=== PATIENT | female | born 1990 | race Caucasian/White ===

== ENCOUNTER 2017-05-21 09:42 | Emergency (ER) | payer OTHER ==
[~2017-05-21] VITALS: Ht 154.9 cm; Wt 91.0 kg
[~2017-05-21 09:42] MED LIST: ALBU8I INH; DICL75 PO; PERC5TAB12 PO
[2017-05-21 09:49] VITALS: BP 140/98; PULSE 144; RESP 22; O2SAT 99
[2017-05-21 09:50] VITALS: BP 135/100; PULSE 126; RESP 21
[2017-05-21] MEDS ORDERED: LORazepam 2 MG/ML VIAL ONE (09:54)
[2017-05-21] MEDS ORDERED: LORazepam 2 MG/ML VIAL IV PUSH ONE ×2 (10:00→10:15)
[2017-05-21] MEDS ORDERED: SODIUM CHLOR 0.9% 1000 ML INJ 1,000 ML IV ONE (10:00)
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
[2017-05-21 11:02] LABS: AUTOMATED NEUTROPHIL # 7.2 TH/MM3 (1.8-7.7); BASOPHIL # 0.1 TH/MM3 (0-0.2); BASOPHIL % 0.5 % (0.0-2.0); EOSINOPHIL # 0.1 TH/MM3 (0-0.4); EOSINOPHIL % 0.5 % (0.0-4.0); HEMATOCRIT 42.2 % (35.0-46.0); HEMO FLAGS DIFF FINAL; LYMPH % 25.8 % (9.0-44.0); LYMPHOCYTE # 2.9 TH/MM3 (1.0-4.8); MEAN CELL VOLUME 80.5 FL (80.0-100.0); MEAN CORPUSCULAR HGB CONC 34.8 % (32.0-36.0); MONO % 10.3 % (0.0-8.0); NEUT % 62.9 % (16.0-70.0); PLATELET COUNT 274 TH/MM3 (150-450); RED BLOOD COUNT 5.24 MIL/MM3 (4.00-5.30); RED CELL DISTRIBUTION WIDTH 13.5 % (11.6-17.2); WHITE BLOOD COUNT 11.4 TH/MM3 (4.0-11.0)
[2017-05-21 11:04] VITALS: BP 125/58; PULSE 122; RESP 20; O2SAT 95
[2017-05-21 11:14] LABS: BICARBONATE 26.4 MEQ/L (21.0-32.0); POTASSIUM 3.8 MEQ/L (3.5-5.1)
[2017-05-21 12:00] VITALS: BP 119/75; PULSE 103; RESP 18; O2SAT 100
[2017-05-21 12:37] VITALS: BP 116/81
--- NOTE | 2017-05-21 17:38 | EKG ---
Date Performed: 05/21/2017 Time Performed: 09:58:26 PTAGE: 26 years EKG: SINUS TACHYCARDIA ABNORMAL RHYTHM ECG PREVIOUS TRACING : 12/24/2009 02.03 DOCTOR: Jhony Farr Interpretating Date/Time 05/21/2017 17:37:23
== END 2017-05-21 12:37 | disposition home or self-care (01) ==
LOC: NEPC 09:42
DX: T43.621A Poisoning by amphetamines, accidental (unintentional), initial encounter (principal)
CPT/HCPCS: 80048; 85025; 93005; 96374; 99284; J2060; J7030

== ENCOUNTER 2018-01-27 08:51 | Emergency (ER) | payer OTHER ==
[~2018-01-27] VITALS: Ht 170.2 cm; Wt 75.0 kg
[2018-01-27 08:59] VITALS: BP 128/80; PULSE 73; RESP 18; TEMP 98.1; O2SAT 99
[2018-01-27 09:47] VITALS: BP 141/88; PULSE 88; RESP 18; O2SAT 100
--- NOTE | 2018-01-27 10:01 | PD ---
HPI Chief Complaint: Abdominal Pain Time Seen by Provider: 09:42 Travel History International Travel<30 days: No Contact w/Intl Traveler<30days: No Traveled to known affect area: No History of Present Illness HPI The patient was seen and examined in the presence of the nurse. At no point in time was in the room without the nurse present. This patient complains of having white colored stool and a funny taste in her mouth. She is worried about having liver problems. Patient is immediately hypercritical of this hospital and starts to bash it when I start ask her questions. She claims that when she was discharged last time she was here she went to [facility] and was admitted for 2 weeks for liver problems. She says she has hep C. She is an alcohol abuser. She had 2 or 3 drinks yesterday. She has history of IV drug abuse. Her last injection was 2 weeks ago. She has not had any fever or chills. No chest or cardiac symptoms. Duration is 3 days. No alleviating factors. No exacerbating factors. PFSH Past Medical History ADD: Yes ADHD: Yes Asthma: Yes Blood Disorders: No Anxiety: Yes Cancer: No Cardiovascular Problems: No Diabetes: No Diminished Hearing: No (HX B/L EAR SX CHILD ) GERD: Yes Genitourinary: No Headaches: Yes Hepatitis: Yes (C) Musculoskeletal: No Psychiatric: Yes Reproductive: No Respiratory: Yes (ASTHMA) Immunizations Current: No Schizophrenia: Yes Seizures: No Thyroid Disease: No Ulcer: No Tetanus Vaccination: > 5 Years Influenza Vaccination: No ?: Not LMP: 01/27/18 Menopausal: No : 1 Para: 0 Miscarriage: 1 : 0 Ovarian Cysts: Yes Past Surgical History Ear Surgery: Yes Tympanostomy Tube: Yes Other Surgery: Yes (EAR SURGERY) Social History Alcohol Use: No Tobacco Use: Yes (ONE PPD) Substance Use: No (IV DRUG USER PREVIOUSLY) Allergies-Medications (Allergen,Severity, Reaction): Coded Allergies: No Known Allergies (Verified Adverse Reaction, Unknown, 01/27/18) Reported Meds & Prescriptions Reported Meds & Active Scripts Active No Active Prescriptions or Reported Medications Review of Systems General / Constitutional: No: Fever Eyes: No: Visual changes HENT: No: Headaches Cardiovascular: No: Chest Pain or Discomfort Respiratory: No: Shortness of Breath Gastrointestinal: No: Abdominal Pain Genitourinary: No: Dysuria Musculoskeletal: No: Pain Skin: No Rash Neurologic: No: Weakness Psychiatric: Positive: Substance Abuse, No: Depression Endocrine: No: Polydipsia Hematologic/Lymphatic: No: Easy Bruising Physical Exam Narrative GENERAL: Well-nourished, well-developed patient in no apparent distress. SKIN: Focused skin assessment reveals no rash and nodules. Skin is Warm and dry. HEAD: Atraumatic. Normocephalic. EYES: Pupils equal and round. No scleral icterus. No injection or drainage. ENT: No nasal bleeding or discharge. Mucous membranes pink and moist. NECK: Trachea midline. No JVD. CARDIOVASCULAR: Regular rate and rhythm. No murmur appreciated. RESPIRATORY: No accessory muscle use. Clear to auscultation. Breath sounds equal bilaterally. GASTROINTESTINAL: Abdomen soft, non-tender, nondistended. Hepatic and splenic margins not palpable. MUSCULOSKELETAL: No obvious deformities. No clubbing. No cyanosis. No edema. NEUROLOGICAL: Awake and alert. No obvious cranial nerve deficits. Motor grossly within normal limits. Normal speech. PSYCHIATRIC: Appropriate mood and affect; insight and judgment poor . Data Data Last Documented VS Vital Signs Date Time Temp Pulse Resp B/P (MAP) Pulse Ox O2 Delivery O2 Flow Rate FiO2 01/27/18 13:21 80 18 135/79 (97) 99 Room Air 01/27/18 08:59 98.1 Orders Orders Complete Blood Count With Diff (01/27/18 09:55) Comprehensive Metabolic Panel (01/27/18 09:55) Prothrombin Time / Inr (Pt) (01/27/18 09:55) Act Partial Throm Time (Ptt) (01/27/18 09:55) Ed Urine Pregnancytest Poc (01/27/18 09:55) Urinalysis - C+S If Indicated (01/27/18 09:55) Drug Screen, Random Urine (01/27/18 09:55) Alcohol (Ethanol) (01/27/18 09:55) Urine Culture (01/27/18 09:25) Labs Laboratory Tests Test 01/27/18 09:25 01/27/18 09:40 Urine Color LIGHT-YELLOW Urine Turbidity CLEAR Urine pH 5.5 Urine Specific [place] 1.008 Urine Protein NEG mg/dL Urine Glucose (UA) NEG mg/dL Urine Ketones NEG mg/dL Urine Occult Blood NEG Urine Nitrite NEG Urine Bilirubin NEG Urine Urobilinogen LESS THAN 2.0 MG/DL Urine Leukocyte Esterase LARGE Urine RBC 1 /hpf Urine WBC 10 /hpf Urine Squamous Epithelial Cells 2 /hpf Urine Transitional Epithelial Cells <1 /hpf Urine Bacteria RARE /hpf Urine Mucus FEW /lpf Microscopic Urinalysis Comment CULTURE INDICATED Urine Opiates Screen NEG Urine Barbiturates Screen NEG Urine Amphetamines Screen NEG Urine Benzodiazepines Screen NEG Urine Cocaine Screen NEG Urine Cannabinoids Screen NEG White Blood Count 10.0 TH/MM3 Red Blood Count 5.28 MIL/MM3 Hemoglobin 14.0 GM/DL Hematocrit 41.5 % Mean Corpuscular Volume 78.6 FL Mean Corpuscular Hemoglobin 26.5 PG Mean Corpuscular Hemoglobin Concent 33.7 % Red Cell Distribution Width 14.9 % Platelet Count 272 TH/MM3 Mean Platelet Volume 9.9 FL Neutrophils (%) (Auto) 63.5 % Lymphocytes (%) (Auto) 25.6 % Monocytes (%) (Auto) 8.0 % Eosinophils (%) (Auto) 2.4 % Basophils (%) (Auto) 0.5 % Neutrophils # (Auto) 6.4 TH/MM3 Lymphocytes # (Auto) 2.6 TH/MM3 Monocytes # (Auto) 0.8 TH/MM3 Eosinophils # (Auto) 0.2 TH/MM3 Basophils # (Auto) 0.1 TH/MM3 CBC Comment DIFF FINAL Differential Comment Prothrombin Time 10.0 SEC Prothromb Time International Ratio 1.0 RATIO Activated Partial Thromboplast Time 28.9 SEC Blood Urea Nitrogen 18 MG/DL Creatinine 0.74 MG/DL Random Glucose 85 MG/DL Total Protein 7.7 GM/DL Albumin 3.7 GM/DL Calcium Level 8.7 MG/DL Alkaline Phosphatase 96 U/L Aspartate Amino Transf (AST/SGOT) 27 U/L Alanine Aminotransferase (ALT/SGPT) 22 U/L Total Bilirubin 0.4 MG/DL Sodium Level 141 MEQ/L Potassium Level 4.5 MEQ/L Chloride Level 110 MEQ/L Carbon Dioxide Level 24.6 MEQ/L Anion Gap 6 MEQ/L Estimat Glomerular Filtration Rate 94 ML/MIN Ethyl Alcohol Level LESS THAN 3 MG/DL MDM Medical Decision Making Medical Screen Exam Complete: Yes Emergency Medical Condition: Yes Medical Record Reviewed: Yes Differential Diagnosis Polysubstance abuse, gastroenteritis, liver disease Narrative Course I have reviewed the patient's electronic medical record. Patient was here May 2017 for overdose I have requested records from [facility] IV placed and labs sent Exam is rather benign. Hours later they have sent a couple of sporadic reports from [place] but nothing of any value or use. There is no H&P or discharge summary as requested. CBC and compress a metabolic profile is here today are normal Vital signs are normal There is no evidence of liver failure. Stable for outpatient follow-up Diagnosis Primary Impression: Liver disease Additional Impression: IV drug abuse Additional Instructions: The patient was advised to follow up with their physician and return if they worsen. Consider [facility] rehab services Med/Other Pt SpecificInfo: Other Scripts No Active Prescriptions or Reported Meds Disposition: 01 DISCHARGE HOME Condition: Stable Bin May MD January 27, 2018 10:01
[2018-01-27 10:37] LABS: AUTOMATED NEUTROPHIL # 6.4 TH/MM3 (1.8-7.7); BASOPHIL # 0.1 TH/MM3 (0-0.2); BASOPHIL % 0.5 % (0.0-2.0); EOSINOPHIL # 0.2 TH/MM3 (0-0.4); EOSINOPHIL % 2.4 % (0.0-4.0); HEMATOCRIT 41.5 % (35.0-46.0); LYMPH % 25.6 % (9.0-44.0); LYMPHOCYTE # 2.6 TH/MM3 (1.0-4.8); MEAN CELL VOLUME 78.6 FL (80.0-100.0); MEAN CORPUSCULAR HEMOGLOBIN 26.5 PG (27.0-34.0); MEAN CORPUSCULAR HGB CONC 33.7 % (32.0-36.0); MEAN PLATELET VOLUME 9.9 FL (7.0-11.0); MONOCYTE # 0.8 TH/MM3 (0-0.9); NEUT % 63.5 % (16.0-70.0); PLATELET COUNT 272 TH/MM3 (150-450); RED BLOOD COUNT 5.28 MIL/MM3 (4.00-5.30); RED CELL DISTRIBUTION WIDTH 14.9 % (11.6-17.2)
[2018-01-27 10:56] LABS: BACTERIA, URINE RARE /hpf; BILIRUBIN, URINE NEG (NEG); BLOOD, URINE NEG (NEG); GLUCOSE,URINE NEG (NEG); KETONE, URINE NEG (NEG); MUCUS URINE FEW /lpf (OCC); NITRITE,URINE NEG (NEG); PH, URINE 5.5 (5.0-8.5); SQUAMOUS EPITHELIAL CELL URINE 2 /hpf (0-5); TRANSITIONAL EPI CELLS, URINE <1 /hpf; URINE COLOR LIGHT-YELLOW (YELLW/STRAW); URINE LEUKOCYTE ESTERASE LARGE (NEG)
[2018-01-27 10:59] LABS: ALT (GPT) 22 U/L (10-53)
[2018-01-27 11:01] LABS: ALKALINE PHOSPHATASE 96 U/L (45-117); TOTAL BILIRUBIN ADULT 0.4 MG/DL (0.2-1.0); TOTAL PROTEIN 7.7 GM/DL (6.4-8.2)
[2018-01-27 11:08] LABS: ALBUMIN 3.7 GM/DL (3.4-5.0); AST (GOT) 27 U/L (15-37); BICARBONATE 24.6 MEQ/L (21.0-32.0); BLOOD UREA NITROGEN 18 MG/DL (7-18); CALCIUM 8.7 MG/DL (8.5-10.1); CHLORIDE 110 MEQ/L (98-107); CREATININE 0.74 MG/DL (0.50-1.00); GLOMERULAR FILTRATION RATE 94 ML/MIN (>89); GLUCOSE,RANDOM 85 MG/DL (74-106); SODIUM (NA) 141 MEQ/L (136-145)
[2018-01-27 13:21] VITALS: BP 135/79; PULSE 80; RESP 18; O2SAT 99
== END 2018-01-27 14:44 | disposition home or self-care (01) ==
LOC: NEPC 08:51
DX: K76.9 Liver disease, unspecified (principal); F19.10 Other psychoactive substance abuse, uncomplicated; F17.200 Nicotine dependence, unspecified, uncomplicated
CPT/HCPCS: 80053; 80307; 81001; 84703; 85025; 85610; 85730; 87086; 99283